=== PATIENT | female | born 2000 | race Caucasian/White ===

== ENCOUNTER 2022-02-26 09:39 | Emergency (ER) | payer BC ==
[~2022-02-26] VITALS: Ht 167.6 cm; Wt 54.2 kg
[2022-02-26] MEDS ORDERED: DRAMAMINE50 MG (10:05)
[2022-02-26] MEDS ORDERED: SODIUM CHLORIDE 0.9% 1000ML 1,000 ML IV STA (10:06)
[2022-02-26] MEDS ORDERED: FAMOTIDINE 20 MG/2 ML VIAL IV ONE (10:15)
[2022-02-26] MEDS ORDERED: ONDANSETRON HCL INJ 2MG/ML 2ML 2 MG/ML VIAL IV ONE (10:15)
[2022-02-26] MEDS ORDERED: PRENA1 TRUE CO1 EACH PO (10:17)
[2022-02-26] MEDS ORDERED: ONDANSETRON ODT4 MG PO (10:17)
[2022-02-26] MEDS ORDERED: FAMOTIDINE20 MG PO (10:17)
[2022-02-26] MEDS ORDERED: MAALOX MAXIMUM355 ML PO (10:17)
[2022-02-26] MEDS ORDERED: SODIUM CHLORIDE 0.9% 1000ML 1,000 ML ONE (10:20)
== END 2022-02-26 11:15 | disposition home or self-care (01) ==
LOC: FSED 10:05
DX: O21.0 Mild hyperemesis gravidarum (principal); E87.6 Hypokalemia; E86.0 Dehydration
CPT/HCPCS: 80053; 81003; 81025; 85025; 96374; 96375; 99283; J2405; J7030

== ENCOUNTER 2022-03-28 18:30 | Emergency (ER) | payer BC ==
[~2022-03-28 18:30] MED LIST: DRAMAMINE50 MG; FAMOTIDINE20 MG PO; MAALOX MAXIMUM355 ML PO; ONDANSETRON ODT4 MG PO; PRENA1 TRUE CO1 EACH PO
== END 2022-03-28 19:20 | disposition short-term general hospital (02) ==
LOC: FSED 19:09
DX: O26.91 Pregnancy related conditions, unspecified, first trimester (principal)